=== PATIENT | male | born 1945 | race Caucasian/White ===

== ENCOUNTER 2018-04-12 20:32 | Emergency (ER) | payer OTHER, MEDICAID ==
[~2018-04-12] VITALS: Ht 170.2 cm; Wt 65.8 kg
[~2018-04-12 20:32] MED LIST: ACCUNEB0.63 MG/3 IH; ADVAIR HFA 230M1 AER INH; ALBUTEROL2.5 MG/0.1 INH; ALBUTEROL2.5 MG/0.5 INH; ALEVE220 MG PO; BROVANA15 MCG/2 M INH; CLARITIN10 MG PO; DUONEB 2.5-0.5 M3 ML INH; FLOMAX0.4 MG PO; FLONASE 0.05%50 MCG INH; GABA; HYDROCODON-ACE1 EACH PO; IBUPROFEN 200200 M1 PO; LEVAQUIN 500 M500 M2 PO; LEVAQUIN 500 M500 M4 PO; LEVAQUIN 750 M750 MG PO; LIORESAL 10 MG10 MG PO; METOCLOPRAM; MUCINEX TA600 MG/TA2 PO; MULTIVITAMINS PO; NASAL SPRAY30 ML NS; NEURONTIN 300300 M1 PO; NEURONTIN600 MG PO; OMEPRAZOLE10 MG PO; PREDNISONE 10 M10 MG PO; PROTONIX 20 MG20 M1 PO; PROTONIX40 M1 PO; REGLAN 5 MG TAB5 MG GT; SINGULAIR 10 MG10 M1 PO; ZANAFLEX4 M1 PO
[2018-04-12 21:08] LABS: ABSOLUTE BASOPHILS 0.1 thou/uL (0.0-0.2); ABSOLUTE EOSINOPHILS 0.2 thou/uL (0.0-0.7); ABSOLUTE LYMPHOCYTES 2.5 thou/uL (0.8-5.3); ABSOLUTE MONOCYTES 0.4 thou/uL (0.0-1.2); ABSOLUTE NEUTROPHILS 4.7 thou/uL (1.6-8.1); BASOPHILS 0.7 %; EOSINOPHILS 2.6 %; HEMATOCRIT 43.8 % (42.0-52.0); HEMOGLOBIN 14.3 gm/dL (14.0-18.0); LYMPHOCYTES 31.8 %; MCH 29.3 pg (26.0-34.0); MCHC 32.6 g/dL (28.0-37.0); MCV 89.9 fL (80.0-100.0); MONOCYTES 5.4 %; MPV 8.1 fl. (7.2-11.1); NUCLEATED RBCS 0 /100WBC; PLATELET COUNT* 338 thou/uL (150-400); POLYS 59.5 %; RBC 4.88 mil/uL (4.50-6.00); RDW-CV 13.9 % (10.5-14.5); WBC 7.8 thou/uL (4.0-11.0)
[2018-04-12 21:13] LABS: ANION GAP 4 mmol/L (7-16); BUN 8 mg/dL (7-18); CALCIUM 10.3 mg/dL (8.5-10.1); CHLORIDE 103 mmol/L (98-107); CO2 32 mmol/L (21-32); CREATININE 0.8 mg/dL (0.6-1.3); GLUCOSE 147 mg/dL (70-99); POTASSIUM 3.6 mmol/L (3.5-5.1); SODIUM 139 mmol/L (136-145)
[2018-04-12 21:21] LABS: INR 1.1; PROTIME 10.4 Seconds (9.20-11.50)
[2018-04-12 21:24] LABS: ALBUMIN 3.5 g/dL (3.4-5.0); ALKALINE PHOSPHATASE 124 U/L (46-116); NT-PRO BRAIN NAT PEPTIDE 255 pg/mL (<300); SGOT 15 U/L (15-37); SGPT 17 U/L (30-65); TOTAL BILIRUBIN 0.3 mg/dL (<0.1-1.0); TOTAL PROTEIN 8.1 g/dL (6.4-8.2); TROPONIN-I LEVEL <0.06 ng/mL (<0.06)
[2018-04-12] MEDS ORDERED: SYNTHROID100 MC1 PO (22:46)
[2018-04-12] MEDS ORDERED: FLONASE 0.05%50 MCG NASAL (22:46)
[2018-04-12] MEDS ORDERED: TRIAMCINOLONE A80 G2 TOP (22:47)
[2018-04-12] MEDS ORDERED: EFUDEX40 GM TOP (22:48)
[2018-04-12] MEDS ORDERED: PREDNISONE50 MG PO (22:57)
[2018-04-12 23:05] VITALS: BP 128/74
--- NOTE | 2018-04-13 10:31 | EKG ---
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 : 1945 Requested By: Stephanie Scruggs Order Number: [id number] MD: Kishan Ziegler Measurements Intervals [place] Rate: 107 P: 76 ND: 183 QRS: 56 QRSD: 98 T: 70 QT: 336 QTc: 449 Interpretive Statements Sinus tachycardia Multiple ventricular premature complexes Probable left atrial enlargement RSR' in V1 or V2, right VCD or RVH Baseline wander in lead(s) I,II,aVR Compared to ECG 02/18/2017 18:05:32 Ventricular premature complex(es) now present Electronically Signed On 04-13-2018 10:30:51 CDT by Kishan Ziegler [email or web address] <ELECTRONICALLY SIGNED> By: Kishan Ziegler MD, [facility] 04/13/18 1030 38 38 Kishan Ziegler MD, [facility] /EPI
[2018-07-29] MEDS ORDERED: NEURONTIN 300300 M1 PO (14:49)
[2018-07-29] MEDS ORDERED: ATIVAN0.5 MG PO (14:51)
== END 2018-04-12 23:05 | disposition home or self-care (01) ==
LOC: M.ERS 20:32
PROVIDERS: Emergency Medicine
DX: J44.1 Chronic obstructive pulmonary disease with (acute) exacerbation (principal); K21.9 Gastro-esophageal reflux disease without esophagitis; M19.90 Unspecified osteoarthritis, unspecified site; Z87.891 Personal history of nicotine dependence; Z88.8 Allergy status to other drugs, medicaments and biological substances; Z85.89 Personal history of malignant neoplasm of other organs and systems; Z90.49 Acquired absence of other specified parts of digestive tract

== ENCOUNTER → 2018-08-04 | Day surgery (SDC) | payer OTHER, MEDICAID ==
[~2018-08-04] MED LIST changes: +ATIVAN0.5 MG PO; +EFUDEX40 GM TOP; +FLONASE 0.05%50 MCG NASAL; +PREDNISONE50 MG PO; +SYNTHROID100 MC1 PO; +TRIAMCINOLONE A80 G2 TOP
[2018-08-04 08:50] LABS: HEMATOCRIT 42.1 % (42.0-52.0); HEMOGLOBIN 13.7 gm/dL (14.0-18.0); MCH 29.4 pg (26.0-34.0); MCHC 32.6 g/dL (28.0-37.0); MPV 7.5 fl. (7.2-11.1); RBC 4.67 mil/uL (4.50-6.00); RDW-CV 13.9 % (10.5-14.5); WBC 8.8 thou/uL (4.0-11.0)
[2018-08-04 08:57] LABS: CALCIUM 8.9 mg/dL (8.5-10.1); CREATININE 0.9 mg/dL (0.6-1.3); POTASSIUM 3.7 mmol/L (3.5-5.1)
--- NOTE | 2018-08-04 10:01 | EKG ---
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
== END | disposition home or self-care (01) ==
LOC: M.SUR 07:51
PROVIDERS: Internal Medicine Gastroenterology
DX: K22.2 Esophageal obstruction (principal); K44.9 Diaphragmatic hernia without obstruction or gangrene; J44.9 Chronic obstructive pulmonary disease, unspecified; K21.9 Gastro-esophageal reflux disease without esophagitis; M19.90 Unspecified osteoarthritis, unspecified site; Z99.81 Dependence on supplemental oxygen; Z87.891 Personal history of nicotine dependence; Z98.890 Other specified postprocedural states; Z88.8 Allergy status to other drugs, medicaments and biological substances; Z79.899 Other long term (current) drug therapy